=== PATIENT | male | born 2000 | race American Indian/Alaskan Native ===

== ENCOUNTER 2020-12-17 12:40 | Emergency (ER) | payer SELFPAY ==
[2020-12-17 13:52] VITALS: BP 124/84
--- NOTE | 2020-12-17 13:55 | Emergency Department Report ---
ED Asthma HPI - General Chief Complaint: Adult Asthma Stated Complaint: WALTER Time Seen by Provider: 12/17/20 13:13 Source: patient Mode of arrival: Ambulatory Limitations: No Limitations - History of Present Illness Initial Comments: Patient is a 20-year-old male presents emergency room complaints of an asthma exacerbation that began last night. He states that his asthma is typically triggered by allergies and changes in season. he states he has associated wheezing and SOB. He states he previously used to use an albuterol inhaler and Advair but states that he ran out. pt states he has had some fullness in his right ear, he denies any ear drainage or hearing difficulty. He denies any fever, cough, nausea, vomiting, diarrhea, sore throat. No other past medical history. He states he has an allergy to pollen but denies any allergy to medications. - Related Data Previous Rx's Medication Instructions Recorded Last Taken Type Albuterol Sulfate [Proventil Hfa] 1 gm IH TID PRN #1 hfa.aer.ad 12/17/20 Unknown Rx Fluticasone [Flonase] 1 spray NS QDAY #1 bottle 12/17/20 Unknown Rx Fluticasone/Salmeterol [Advair 1 puff IH BID #1 disk.w.dev 12/17/20 Unknown Rx Diskus 100-50 mcg] Loratadine 10 mg PO DAILY #14 tablet 12/17/20 Unknown Rx Prednisone [predniSONE 10 mg 10 mg PO .TAPER #1 tab.ds.pk 12/17/20 Unknown Rx (6-Day Pack, 21 Tabs)] Allergies Allergy/AdvReac Type Severity Reaction Status Date / Time pollen extracts AdvReac Shortness Verified 12/17/20 12:51 of Breath ED Review of Systems ROS: Stated complaint: WALTER Other details as noted in HPI Comment: All other systems reviewed and negative ED Past Medical Hx - Past Medical History Hx Asthma: Yes - Social History Smoking Status: Current Some Day Smoker Substance Use Type: None - Medications Home Medications: Home Medications Medication Instructions Recorded Confirmed Last Taken Type Albuterol Sulfate [Proventil Hfa] 1 gm IH TID PRN #1 hfa.aer.ad 12/17/20 Unknown Rx Fluticasone [Flonase] 1 spray NS QDAY #1 bottle 12/17/20 Unknown Rx Fluticasone/Salmeterol [Advair 1 puff IH BID #1 disk.w.dev 12/17/20 Unknown Rx Diskus 100-50 mcg] Loratadine 10 mg PO DAILY #14 tablet 12/17/20 Unknown Rx Prednisone [predniSONE 10 mg 10 mg PO .TAPER #1 tab.ds.pk 12/17/20 Unknown Rx (6-Day Pack, 21 Tabs)] ED Physical Exam - General Limitations: No Limitations General appearance: alert, in no apparent distress - Head Head exam: Present: atraumatic, normocephalic - Eye Eye exam: Present: normal appearance - ENT ENT exam: Present: normal orophraynx, mucous membranes moist, TM's normal bilaterally, normal external ear exam, other (pale boggy turbinates) - Respiratory Respiratory exam: Present: normal lung sounds bilaterally, wheezes (very slight expiratory bilaterally, good air movement). Absent: respiratory distress, rales, rhonchi, stridor, chest wall tenderness, accessory muscle use, decreased breath sounds, prolonged expiratory - Cardiovascular Cardiovascular Exam: Present: regular rate, normal rhythm, normal heart sounds. Absent: systolic murmur, diastolic murmur, rubs, gallop - Neurological Exam Neurological exam: Present: alert, oriented X3 - Psychiatric Psychiatric exam: Present: normal affect, normal mood - Skin Skin exam: Present: warm, dry, intact ED Course Vital Signs 12/17/20 12:51 Temperature 98.6 F Pulse Rate 94 H Respiratory 20 Rate Blood Pressure 124/84 O2 Sat by Pulse 99 Oximetry ED Medical Decision Making - Medical Decision Making atient is a 20-year-old male presents emergency room complaints of an asthma exacerbation that began last night. He states that his asthma is typically triggered by allergies and changes in season. he states he has associated wheezing and SOB. He states he previously used to use an albuterol inhaler and Advair but states that he ran out. pt states he has had some fullness in his right ear, he denies any ear drainage or hearing difficulty. He denies any fever, cough, nausea, vomiting, diarrhea, sore throat. No other past medical history. He states he has an allergy to pollen but denies any allergy to medications. Vitals are normal. On exam:pale boggy turbinates, very slight expiratory bilaterally, good air movement. Examination appears consistent with allergies and very mild asthma. Patient has no clinical signs of significant acute asthma exacerbation. Patient states that he really just needs refill of medications. He has no clinical signs of bacterial pneumonia or bacterial bronchitis. Advised patient Please take medication as prescribed. Follow-up with your primary care doctor. Return to emergency room for any new or worsening symptoms. Critical care attestation.: If time is entered above; I have spent that time in minutes in the direct care of this critically ill patient, excluding procedure time. ED Disposition Clinical Impression: Asthma Qualifiers: Asthma severity: unspecified severity Asthma persistence: unspecified Asthma complication type: with acute exacerbation Qualified Code(s): J45.901 - Unspecified asthma with (acute) exacerbation Allergies Qualifiers: Encounter type: initial encounter Qualified Code(s): T78.40XA - Allergy, unspecified, initial encounter Disposition: TO HOME OR SELFCARE Is pt being admited?: No Does the pt Need Aspirin: No Condition: Stable Instructions: Asthma, Adult, Allergies, Adult, [id number], Asthma (ED) Additional Instructions: Please take medication as prescribed. Follow-up with your primary care doctor. Return to emergency room for any new or worsening symptoms. Prescriptions: Fluticasone/Salmeterol [Advair Diskus 100-50 mcg] 1 puff IH BID #1 disk.w.dev Fluticasone [Flonase] 1 spray NS QDAY #1 bottle Loratadine 10 mg PO DAILY #14 tablet Prednisone [predniSONE 10 mg (6-Day Pack, 21 Tabs)] 10 mg PO .TAPER #1 tab.ds.pk Albuterol Sulfate [Proventil Hfa] 1 gm IH TID PRN #1 hfa.aer.ad PRN Reason: wheezing Referrals: MONICA YEBOAH MD [Primary Care Provider] - 2-3 Days SHIRA ROSSI MD [Staff Physician] - 3-5 Days [facility] [Provider Group] - 3-5 Days [facility] [Outside] - 3-5 Days Forms: Work/School Release Form(ED) Time of Disposition: 13:53 Print Language: BENGALI
== END 2020-12-17 14:19 | disposition home or self-care (01) ==
LOC: ED 12:40
DX: J45.901 Unspecified asthma with (acute) exacerbation (principal); T78.40XA Allergy, unspecified, initial encounter; F17.200 Nicotine dependence, unspecified, uncomplicated; Z79.899 Other long term (current) drug therapy; Z88.8 Allergy status to other drugs, medicaments and biological substances
CPT/HCPCS: 99282